=== PATIENT | male | born 1995 | race Caucasian/White ===

== ENCOUNTER 2023-09-26 00:59 | Emergency (ER) | payer OTHER ==
[~2023-09-26] VITALS: Ht 182.9 cm; Wt 81.6 kg
[2023-09-26] MEDS: ONDANSETRON 4 MG/2 ML VIAL IVP ONE (01:02)
[2023-09-26] MEDS ORDERED: ONDANSETRON 4 MG/2 ML VIAL ONE (01:03)
[2023-09-26 01:04] VITALS: BP 134/82; PULSE 63; RESP 11; TEMP 97.9; O2SAT 95
[2023-09-26] MEDS ORDERED: NALOXONE 0.4 MG/ML VIAL ONE (01:06)
[2023-09-26] MEDS: NALOXONE 0.4 MG/ML VIAL IVP ONE ×2 (01:08→01:22)
[2023-09-26] MEDS ORDERED: NALOXONE PFS 2 MG/2 ML SYR ONE (01:09)
[2023-09-26] MEDS ORDERED: INTUBATION KIT MC ONE (01:25)
[2023-09-26 01:27] LABS: BASOPHILS % (AUTO) 0.3 % (0.0-2.0); EOSINOPHILS % (AUTO) 0.4 % (0.0-4.0); HEMATOCRIT 41.6 % (36-52); HEMOGLOBIN 14.8 g/dL (12.0-18.0); LYMPHOCYTES # (AUTO) 0.9 K/uL (2.0-11.5); LYMPHOCYTES % (AUTO) 11.9 % (20.5-51.1); MEAN CORPUSCULAR HEMOGLOBIN 33 pg (27-31); MEAN CORPUSCULAR HGB CONC 36 g/dL (33-37); MEAN CORPUSCULAR VOLUME 93.2 fL (80-94); MONOCYTES # (AUTO) 0.4 K/uL (0.8-1.0); MONOCYTES % (AUTO) 5.6 % (1.7-9.3); NEUTROPHILS # (AUTO) 6.1 K/uL (1.8-7.7); NEUTROPHILS % (AUTO) 81.8 % (42.2-75.2); PLATELET COUNT (AUTO) 237 K/uL (140-450); RED BLOOD CELL COUNT(AUTO) 4.47 MIL/uL (4.20-6.10); RED CELL DISTRIBUTION WIDTH 12.1 % (11.6-13.7); WHITE BLOOD COUNT (AUTO) 7.5 K/uL (4.8-10.8)
[2023-09-26] MEDS: ETOMIDATE 20 MG/10 ML VIAL IVP ONE (01:34)
[2023-09-26] MEDS: ROCURONIUM 50 MG/5 ML VIAL IV ONE (01:35)
[2023-09-26 01:36] LABS: ANION GAP 15.3 (8-16); CALCIUM 8.7 mg/dL (8.5-10.1); CARBON DIOXIDE 26.9 mmol/L (21-32); CHLORIDE 100 mmol/L (98-107); CREATININE 1.2 mg/dL (0.6-1.3); GFR ARICAN-AMERICAN 91 mL/min (>90); GFR NON ARICAN-AMERICAN 76 mL/min (>90); GLUCOSE 127 mg/dL (74-106); POTASSIUM 4.2 mmol/L (3.5-5.1); SODIUM SERUM 138 mmol/L (136-145); UREA NITROGEN, BLOOD 10 mg/dL (7-18)
[2023-09-26 01:37] VITALS: BP 138/87; PULSE 61; PULSE 63; RESP 14; O2SAT 100
[2023-09-26] MEDS: NACL 0.9% 1,000 ML IV ONE ×2 (01:39→05:07)
[2023-09-26 01:41] LABS: BARBITURATE, URINE NEGATIVE ng/ml (NEG <=200)
[2023-09-26 01:45] LABS: ALANINE AMINOTRANSFERASE 27 U/L (12-78); ALCOHOL, BLOOD 10 mg/dL (<10); ALKALINE PHOSPHATASE 88 U/L (50-136); ASPARTATE AMINOTRANSFERASE 19 U/L (15-37); SALICYLATE < 2.8 mg/dL (2.8-20.0); TOTAL BILIRUBIN 0.4 mg/dL (0.0-1.0); TOTAL PROTEIN, SERUM 7.8 g/dL (6.4-8.2)
[2023-09-26 02:05] VITALS: PULSE 100; RESP 14; O2SAT 100
[2023-09-26 02:10] LABS: AMPHETAMINE, URINE POSITIVE ng/ml (NEG <=1000); BENZODIAZEPINE, URINE NEGATIVE ng/mL (NEG <=200); CANNABINOID, URINE POSITIVE ng/mL (NEG <=50); COCAINE, URINE NEGATIVE ng/mL (NEG <=300); OPIATE, URINE NEGATIVE ng/mL (NEG <=2000); PHENCYCLIDINE SCREEN,URINE NEGATIVE ng/mL (NEG <=25)
[2023-09-26 02:32] LABS: BLOOD GAS BASE EXCESS -0.9 mmol/L (-2.0-2.0); BLOOD GAS HCO3 24.7 mmol/L (22-26); BLOOD GAS O2 SAT% 97.2 % (92.0-98.5); BLOOD GAS PCO2 44.2 mmHg (35-45); BLOOD GAS PH 7.365 (7.35-7.45); BLOOD GAS PO2 102.9 mmHg (75-100)
[2023-09-26] MEDS ORDERED: MIDAZOLAM 5 MG/5 ML VIAL ONE (02:42)
[2023-09-26] MEDS: MIDAZOLAM 5 MG/5 ML VIAL IV ONE ×2 (02:45→03:27)
[2023-09-26] MEDS: DEXMEDETOMIDINE HCL 400 MCG in NACL 0.9% 96 ML IV STA (02:59)
[2023-09-26] MEDS: DEXMEDETOMIDINE HCL 100 MCG/ML 2 ML VIAL IV ONE ×2 (03:27→07:15)
[2023-09-26] MEDS ORDERED: LORazepam 2 MG/ML VIAL ONE ×3 (03:42→06:20)
[2023-09-26] MEDS ORDERED: fentaNYL citrate 0.05 MG/ML VIAL ONE (03:44)
[2023-09-26] MEDS: LORazepam 2 MG/ML VIAL IVP ONE ×3 (04:05→07:10)
[2023-09-26] MEDS ORDERED: PROPOFOL 200 MG/20 ML VIAL IV ONE (04:09)
[2023-09-26 04:18] VITALS: BP 143/64; PULSE 92; O2SAT 98
[2023-09-26] MEDS: fentaNYL citrate 0.05 MG/ML VIAL IVP ONE (04:20)
[2023-09-26 07:50] VITALS: BP 107/63; PULSE 63; RESP 14; TEMP 97.9; O2SAT 98
== END 2023-09-26 07:50 | disposition short-term general hospital (02) ==
LOC: MED 00:59
DX: R40.4 Transient alteration of awareness (principal); F15.90 Other stimulant use, unspecified, uncomplicated
CPT/HCPCS: 31500; 36415; 36600; 70450; 71045; 80053; 80305; 82803; 84484; 85025; 93005; 96361; 96365; 96366; 96375; 96376; 99291; G0480; G0482; J2060; J2250; J2310; J2405; J2704; J3010; J3490; J7030; Q0092